=== PATIENT | female | born 1975 | race African-American/Black ===

== ENCOUNTER 2018-02-19 16:14 | Emergency (ER) | payer OTHER, SELFPAY ==
[2018-02-19] MEDS ORDERED: Acetaminophen 500 MG TAB ONE (17:38)
--- NOTE | 2018-02-19 17:52 | RAD ---
FRONTAL VIEW CHEST: 02/19/18 COMPARISON: 08/16/15. CLINICAL HISTORY: Cough. FINDINGS: There is no lobar consolidation, effusion, or pneumothorax. The cardiac silhouette is normal in size for portable technique. Osseous structures are intact. IMPRESSION: No focal consolidation. POS: [facility]
[2018-02-19] MEDS ORDERED: Ibuprofen 800 MG TAB ONE (18:21)
== END 2018-02-19 18:58 | disposition home or self-care (01) ==
LOC: ERS 16:14
DX: B34.9 Viral infection, unspecified (principal)
CPT/HCPCS: 71045; 87804

== ENCOUNTER 2021-11-09 07:58 | Emergency (ER) | payer BC ==
[2021-11-09 08:23] LABS: #Eosinphils 0.2 thou/uL (0.0-0.7); #Lymphocytes 1.4 thou/uL (1.20-3.40); #Monocytes 0.8 thou/uL (0.11-0.59); #Neutrophils 4.3 thou/uL (1.40-6.50); %Basophils 0.5 % (0.0-1.0); %Eosinophils 2.3 % (0.0-10.0); %Lymphocytes 20.3 % (21.0-51.0); %Monocytes 11.7 % (0.0-10.0); %Neutrophils 65.1 % (42.0-75.0); Hemoglobin 11.3 g/dL (12.0-16.0); Mean Corpuscular HGB CONC 31.4 g/dL (32.0-36.0); Mean Corpuscular Hemoglobin 28.7 pg (27.0-31.0); Mean Corpuscular Volume 91.6 fL (78.0-98.0); Mean Platelet Volume 8.5 fL (7.4-10.4); Platelet Count 224 thou/uL (130-400); RBC Distribution Width 11.9 % (11.5-14.5); Red Blood Cell (RBC) Count 3.93 mill/uL (4.20-5.40); White Blood Cell (WBC) Count 6.6 thou/uL (4.8-10.8)
[2021-11-09 08:42] LABS: ALT (SGPT) 16 U/L (8-55); AST (SGOT) 20 U/L (5-34); Albumin 4.1 g/dL (3.5-5.0); Alkaline Phosphatase 39 U/L (40-110); Anion Gap 10 mmol/L (10-20); BUN (Urea Nitrogen) 11 mg/dL (7.0-18.7); Bilirubin, Total 0.6 mg/dL (0.2-1.2); Calc. Creatinine Clearance 0 mL/min (70-130); Calcium 9.4 mg/dL (7.8-10.44); Carbon Dioxide 25 mmol/L (22-29); Chloride 105 mmol/L (98-107); Estimated GFR 104; Globulin 3.1 g/dL (2.4-3.5); Glucose 81 mg/dL (70-105); Potassium 3.9 mmol/L (3.5-5.1); Protein, Total 7.2 g/dL (6.0-8.3); Sodium 136 mmol/L (136-145)
[2021-11-09] MEDS ORDERED: HYDROcodone/Acetaminophen 5/325 mg Tablet ONE (09:32)
[2021-11-09] MEDS ORDERED: Ketorolac Tromethamine 30 MG/ML VIAL ONE (09:32)
[2021-11-09 10:51] LABS: Bilirubin Negative (Negative); Blood, Urine Negative (Negative); Clarity Clear (Clear); Glucose, Urine (Dipstick) Normal (Negative); Ketone, Urine Negative (Negative); Leukocyte Negative Leu/uL (Negative); Nitrite Negative (Negative); Protein, Urine (Dipstick) Negative (Neg-Trace); Specific Gravity, Urine 1.019 (1.002-1.036); Urobilinogen Normal mg/dL (Less than 2); pH, Urine 7.5 (5.0-9.0)
[2021-11-09 10:53] LABS: Pregnancy Test - Urine (BHCG) Negative (Negative); Pregu Control Background? CLEAR/WHITE (CLR/WHITE); Pregu Control Bar Appear? YES (CONTROL BAR); Specific Gravity 1.019 (1.002-1.036)
== END 2021-11-09 12:04 | disposition home or self-care (01) ==
LOC: ERS 07:58
DX: N83.202 Unspecified ovarian cyst, left side (principal)
CPT/HCPCS: 36415; 76856; 80053; 81003; 81025; 85025; 96372; J1885

== ENCOUNTER 2022-11-04 03:27 | Emergency (ER) | payer SELFPAY ==
[2022-11-04] MEDS ORDERED: Ibuprofen 800 MG TAB ONE (03:43)
[2022-11-05 16:28] LABS: SARS-CoV-2 NAA Rapid Test Not Detected (NotDetected)
== END 2022-11-04 04:36 | disposition home or self-care (01) ==
LOC: ERS 03:27
DX: J02.0 Streptococcal pharyngitis (principal); Z20.822 Contact with and (suspected) exposure to COVID-19
CPT/HCPCS: 87430; 99283

== ENCOUNTER 2025-02-14 08:46 | Emergency (ER) | payer SELFPAY ==
[2025-02-14] MEDS ORDERED: Ketorolac Tromethamine 30 MG (1 mL) VIAL ONE (09:06)
== END 2025-02-14 09:28 | disposition home or self-care (01) ==
LOC: ERS 08:46
DX: S16.1XXA Strain of muscle, fascia and tendon at neck level, initial encounter (principal); S46.911A Strain of unspecified muscle, fascia and tendon at shoulder and upper arm level, right arm, initial encounter; X50.0XXA Overexertion from strenuous movement or load, initial encounter
CPT/HCPCS: 93005; 96372; 99283; J1885